=== PATIENT | female | born 1995 | race Hispanic/Latino ===

== ENCOUNTER 2023-12-23 19:35 | Emergency (ER) | payer SELFPAY ==
[2023-12-23] MEDS ORDERED: Cyclobenzaprine 10 MG TAB ONE (20:38)
[2023-12-23] MEDS ORDERED: Naproxen 500 MG TAB ONE (20:39)
== END 2023-12-23 20:48 | disposition home or self-care (01) ==
LOC: MADERS 19:35
DX: S06.0X0A Concussion without loss of consciousness, initial encounter (principal); S00.03XA Contusion of scalp, initial encounter; T14.8XXA Other injury of unspecified body region, initial encounter; V89.2XXA Person injured in unspecified motor-vehicle accident, traffic, initial encounter
CPT/HCPCS: 70450; 72125